=== PATIENT | female | born 1955 | race Caucasian/White ===

== ENCOUNTER 2022-01-17 06:05 | Day surgery (SDC) | payer OTHER ==
[~2022-01-17] VITALS: Ht 152.4 cm; Wt 65.3 kg
[2022-01-17] MEDS ORDERED: ONDANSETRON HCL 4 MG/2 ML VIAL ONE (08:37)
[2022-01-17] MEDS ORDERED: KETOROLAC TROMETHAMINE 30 MG VIAL ONE (08:37)
[2022-01-17] MEDS ORDERED: PROPOFOL 200MG/ 20ML VIAL (DIPRIVAN) IV ONE (08:37)
[2022-01-17] MEDS ORDERED: SEVOFLURANE 15 MIN GAS INH ONE (08:37)
[2022-01-17] MEDS ORDERED: LIDOCAINE 1% 10 MG/ML, 20 ML MDV ONE (08:37)
[2022-01-17] MEDS ORDERED: LR 1,000 ML IV.SOLN IV ONE (08:37)
[2022-01-17] MEDS ORDERED: NS 1000 ML IV.SOLN IV ONE (08:37)
[2022-01-17] MEDS ORDERED: KETOROLAC TROMETHAMINE 30 MG VIAL IVP PRN (09:15)
[2022-01-17] MEDS ORDERED: HYDROmorphone 1 MG/ML INJ. CARTRIDGE IVP PRN (09:15)
[2022-01-17] MEDS ORDERED: ONDANSETRON HCL 4 MG/2 ML VIAL IVP PRN (09:15)
[2022-01-17 12:33] VITALS: BP_SYST 120
== END 2022-01-17 11:55 | disposition home or self-care (01) ==
LOC: SDS 06:05 → SMU 06:06 → SDS 11:55
PROVIDERS: ATTEND Obstetrics & Gynecology
DX: N95.0 Postmenopausal bleeding (principal); N84.0 Polyp of corpus uteri; I10 Essential (primary) hypertension; K21.9 Gastro-esophageal reflux disease without esophagitis; E78.5 Hyperlipidemia, unspecified; Z79.899 Other long term (current) drug therapy; Z20.822 Contact with and (suspected) exposure to COVID-19
CPT/HCPCS: 36415 ×3; 58558; 71046; 86886; 86900; 86901; 87426; 87635; 88305; C1819; J1885; J2001; J2405; J2704; J7030; J7120; U0003